=== PATIENT | female | born 1975 | race Two or more races ===

== ENCOUNTER → 2024-08-24 | Outpatient (CLI) | payer MEDICAID, SELFPAY ==
--- NOTE | 2024-08-24 | XR_ITS ---
Examination: Bilateral hands, 6 views. Technique: AP, Oblique, Lateral each hand total 6 views Date and time of exam: August 24 2024-0 1 hours INDICATIONS: Bilateral hand pain beginning 10 years ago worse the last 2 years Findings: Mild juxta-articular bone demineralization No fracture or dislocation involving either hand No erosive or other significant arthritic change involving either hand Mild bilateral osteoarthritis distal interphalangeal joints second through fifth digits IMPRESSION: No erosive or other significant arthritic change involving either hand
--- NOTE | 2024-08-24 | XR_ITS ---
Examination: Bilateral wrists 6 views TECHNIQUE: AP oblique lateral each wrist total 6 views Exam date and time: August 24, 2024 1206 hours INDICATIONS: Bilateral wrist pain 10 years, history carpal tunnel FINDINGS: Mild osteopenia No fracture or dislocation involving either wrist No erosive or other significant arthritic change involving either wrist IMPRESSION: No erosive or other significant arthritic change involving either wrist
== END | disposition home or self-care (01) ==
PROVIDERS: PCP Nurse Practitioner Primary Care
DX: M25.532 Pain in left wrist (principal); M79.642 Pain in left hand; M79.641 Pain in right hand; M25.531 Pain in right wrist
CPT/HCPCS: 73110; 73130

== ENCOUNTER → 2024-11-23 | Outpatient (CLI) | payer MEDICAID, SELFPAY ==
--- NOTE | 2024-11-23 10:30 | XR_ITS ---
Examination: Breast ultrasound complete, bilateral Date and time of exam: November 23, 2024 1126 hours INDICATIONS: Patient states bilateral breast lumps several months, family history breast cancer Technique: Real-time grayscale ultrasonographic imaging bilateral breasts, including all 4 quadrants as well as nipple retroareolar and axillary regions. Findings: Sonographic images right breast demonstrate multiple benign cysts 2:00 circumscribed nodule 5 x 4 mm Sonographic images left breast Multiple benign cysts No solid nodules IMPRESSION: BI-RADS Category 3: Probably benign findings One additional 6 month right breast sonogram follow-up is needed to document stability of 2:00 solid right breast nodule described above
== END | disposition home or self-care (01) ==
PROVIDERS: PCP Nurse Practitioner Primary Care; Referring Provider Nurse Practitioner Primary Care; Visit Provider Nurse Practitioner Primary Care
DX: R92.30 Dense breasts, unspecified (principal); N63.12 Unspecified lump in the right breast, upper inner quadrant
CPT/HCPCS: 76641

== ENCOUNTER 2025-06-15 11:07 | Outpatient (RCR) | payer MEDICAID, SELFPAY ==
--- NOTE | 2025-06-15 11:37 | PTNOTE_ITS ---
PT OP Initial Eval Patient Information Outpatient Physical Therapy Treatment Date: 06/15/25 Visit Reasons: lEFT HAND SURGERY Medical Diagnosis: Left Carpal Tunnel Syndrome Treatment Dx #1: Left Hand Weakness Treatment Dx #2: Left Hand Pain Start of Care: 06/15/25 Date of Onset: 04/17/25 Smoking Status Smoking Status: Never smoker Initial Assessment Subjective: Pt is a 49 y/o female s/p left carpal tunnel release 04/17/25. Pt still has pain (8/10) with weakness. Pt has limitation with gripping, lifting, chores, self care, cooking, cleaning, and performing recreational activities. Pt mentioned she also need right carpal tunnel release. 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 Pt will benefit from physical therapy to increase mobility, strength, and work on hand dexterity. 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 1) Increase left wrist AROM WNL in 6 wks to be able to perform chores 2) Increase left hand strength to 50 lbs in 6 wks to be able to perform gripping activities 3) Decrease wrist pain to 2/10 in 6 wks to be able to perform recreational activities 4) Increase left wrist MMTs grossly to 4/5 in 6 wks to be able to perform self care activities 5) Indep with HEP Treatment Plan 1) Manual Therapy 2) Therapeutic Activities 3) Therapeutic Exercises 4) Modalities (ice, heat) Frequency and Duration: 2 x wk for 6 wks Certification Dates: 06/15/25 to 09/15/25 Procedure Charges OP PT Eval Mod Complex 30 minutes: Yes
== END 2025-06-22 23:59 | disposition home or self-care (01) ==
LOC: CPTX 11:07
PROVIDERS: PCP Nurse Practitioner Gerontology; Referring Provider Nurse Practitioner Gerontology; Visit Provider Nurse Practitioner Gerontology
DX: M79.642 Pain in left hand (principal); R53.1 Weakness; Z98.890 Other specified postprocedural states
CPT/HCPCS: 97162

== ENCOUNTER → 2025-07-05 | Outpatient (CLI) | payer MEDICAID, SELFPAY ==
--- NOTE | 2025-07-05 13:30 | XR_ITS ---
Examination: Breast ultrasound complete, bilateral Date and time of exam: July 05, 2025 1355 hours INDICATIONS: Family history of breast cancer, bilateral breast pain and lumps in the breast 2 years Technique: Real-time grayscale ultrasonographic imaging bilateral breasts, including all 4 quadrants as well as nipple retroareolar and axillary regions. Findings: Sonographic images right breast Multiple benign cysts, the largest in the 9 o'clock position 8 x 7 mm No solid nodules Sonographic images left breast Multiple benign cysts, the largest in the 3:00 and 9:00 positions both 8 x 8 mm Smaller cysts No solid nodules IMPRESSION: BI-RADS Category 0: Incomplete: Need additional imaging evaluation Recommend diagnostic mammography follow-up
== END | disposition home or self-care (01) ==
PROVIDERS: PCP Nurse Practitioner Primary Care; Referring Provider Nurse Practitioner Primary Care; Visit Provider Nurse Practitioner Primary Care
DX: R92.8 Other abnormal and inconclusive findings on diagnostic imaging of breast (principal)
CPT/HCPCS: 76641

== ENCOUNTER 2025-07-17 14:30 | Outpatient (RCR) | payer MEDICAID, SELFPAY ==
--- NOTE | 2025-06-26 13:52 | PT.ODAYNRPT ---
PT Outpatient Daily Note OP Daily Note Outpatient Physical Therapy Treatment Date: 06/26/25 Visit Reasons: left hand pain Subjective: Pt has been massaging the hand around the scar site. Pt's hand feels okay. Objective: Please see flow chart for list of ther ex performed Assessment: patient was initially sensitive to the STM, however, tolerate after a few mins. Pt performed all yellow resistance hand exercises with good form Plan: Continue with PT Length of Time (minutes) of Treatment: 30 Minutes Procedure Charges Therapeutic Exercise 30 minutes: Yes
--- NOTE | 2025-06-28 14:01 | PT.ODAYNRPT ---
PT Outpatient Daily Note OP Daily Note Outpatient Physical Therapy Treatment Date: 06/28/25 Visit Reasons: left hand pain Subjective: Pt's hand feels better. Pt continues to work on scar at home with massage. Objective: Please see flow chart for list of ther ex performed Assessment: tolerate exercises with minimal pain, however, demonstrate hand fatigue post PT session Plan: Continue with PT Length of Time (minutes) of Treatment: 30 Minutes Procedure Charges Therapeutic Exercise 30 minutes: Yes
--- NOTE | 2025-07-05 09:03 | PT.ODAYNRPT ---
PT Outpatient Daily Note OP Daily Note Outpatient Physical Therapy Treatment Date: 07/05/25 Visit Reasons: left hand pain Subjective: Pt reports L hand is doing better still has some sensitivity where scar is. Objective: Please see flow sheet for ther ex list. Assessment: Performed STMa nd scar mobilization, pt tolerated well. Plan: Continue with pOC. Length of Time (minutes) of Treatment: 30 Minutes Procedure Charges Therapeutic Exercise 30 minutes: Yes
--- NOTE | 2025-07-13 14:42 | PT.ODAYNRPT ---
PT Outpatient Daily Note OP Daily Note Outpatient Physical Therapy Treatment Date: 07/12/25 Visit Reasons: left hand pain Subjective: Pt's hand is better. Pt mentioned that her scar is less painful STM is helping. Objective: Please see flow chart for list of ther ex performed Assessment: progressing with hand resistance exercises able to complete complete with better form today Plan: Continue with PT Length of Time (minutes) of Treatment: 30 Minutes Procedure Charges Therapeutic Exercise 30 minutes: Yes
--- NOTE | 2025-07-17 15:18 | PT.ODAYNRPT ---
PT Outpatient Daily Note OP Daily Note Outpatient Physical Therapy Treatment Date: 07/17/25 Visit Reasons: left hand pain Subjective: Pt reports L hand is doing better but still has occasional pain. Objective: Please see flow sheet for ther ex list. Assessment: Performed scar mobs, decrease TTP indicating progress. Plan: Continue with pOC. Length of Time (minutes) of Treatment: 30 Minutes Procedure Charges Therapeutic Exercise 30 minutes: Yes
== END 2025-07-22 23:59 | disposition home or self-care (01) ==
LOC: CPTX 14:30
PROVIDERS: PCP Nurse Practitioner Gerontology; Referring Provider Nurse Practitioner Gerontology; Visit Provider Nurse Practitioner Gerontology
DX: M79.642 Pain in left hand (principal); R53.1 Weakness; Z98.890 Other specified postprocedural states
CPT/HCPCS: 97110

== ENCOUNTER → 2025-08-01 | Outpatient (CLI) | payer MEDICAID, SELFPAY ==
--- NOTE | 2025-08-01 14:15 | XR_ITS ---
Examination: Screening digital mammography, bilateral Computer aided detection 3-D breast Tomosynthesis, bilateral Date and time of exam: 08/01/2025, 2:25 p.m. Comparisons: 12/08/2027 Indications: Screening, bilateral palpable abnormalities Technique: Nonmagnified MLO, CC views of the breasts to been obtained, reconstructed from 3-D Tomosynthesis images. R2 computer aided detection program utilized for evaluation of suspicious masses and/or abnormal calcifications. 3-D Tomosynthesis images obtained. Technologist: Findings: The breasts are extremely dense, which lowers the sensitivity of mammography. No evidence of abnormal masses or suspicious calcifications. Impression: No focal abnormality seen on screening mammogram. Patient history sheet reports new bilateral breast lumps. Bilateral diagnostic mammograms and ultrasound recommended for complete evaluation. BI-RADS category 0: Incomplete assassment; need additional imaging evaluation
== END | disposition home or self-care (01) ==
PROVIDERS: PCP Nurse Practitioner Primary Care; Referring Provider Nurse Practitioner Primary Care; Visit Provider Nurse Practitioner Primary Care
DX: Z12.31 Encounter for screening mammogram for malignant neoplasm of breast (principal); R92.8 Other abnormal and inconclusive findings on diagnostic imaging of breast
CPT/HCPCS: 77063; 77067

== ENCOUNTER 2025-08-14 15:00 | Outpatient (RCR) | payer MEDICAID, SELFPAY ==
--- NOTE | 2025-07-24 15:00 | PT.ODAYNRPT ---
PT Outpatient Daily Note OP Daily Note Outpatient Physical Therapy Treatment Date: 07/24/25 Visit Reasons: left hand pain Subjective: Pt reports L hand is progressing. Objective: Please see flow sheet for ther ex list. Assessment: Progressing functional hand strengthening, pt tolerated well. Plan: Continue with pOC. Length of Time (minutes) of Treatment: 30 Minutes Procedure Charges Therapeutic Exercise 30 minutes: Yes
--- NOTE | 2025-07-26 15:49 | PTNOTE_ITS ---
PT Outpatient Daily Note OP Daily Note Outpatient Physical Therapy Treatment Date: 07/26/25 Visit Reasons: left hand pain Subjective: Pt still notice pinky numbness but hand feels better. Pt also mentioned her right hand is bad and will require surgery at some point. Pt decline the surgery due to fear of pain. 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 Plan: Continue with PT Length of Time (minutes) of Treatment: 30 Minutes Procedure Charges Therapeutic Exercise 30 minutes: Yes
--- NOTE | 2025-08-01 13:56 | PT.ODAYNRPT ---
PT Outpatient Daily Note OP Daily Note Outpatient Physical Therapy Treatment Date: 08/01/25 Visit Reasons: left hand pain Subjective: Pt's hand feels okay. Pt still notice some numbness in the thumb and index finger. Objective: Please see flow chart for list of ther ex performed Assessment: progressing with exercises reps and resistance with better form noted today Plan: Continue with PT Length of Time (minutes) of Treatment: 30 Minutes Procedure Charges Therapeutic Exercise 30 minutes: Yes
--- NOTE | 2025-08-03 14:47 | PT.ODAYNRPT ---
PT Outpatient Daily Note OP Daily Note Outpatient Physical Therapy Treatment Date: 08/03/25 Visit Reasons: left hand pain Subjective: Pt c/o pain in the L hand. Objective: Please see flow sheet for ther ex list. Assessment: Progressing hand gripping and functional strength as tolerated. Plan: Continue with poC. Length of Time (minutes) of Treatment: 30 Minutes Procedure Charges Therapeutic Exercise 30 minutes: Yes
--- NOTE | 2025-08-08 16:02 | PT.ODAYNRPT ---
PT Outpatient Daily Note OP Daily Note Outpatient Physical Therapy Treatment Date: 08/08/25 Visit Reasons: left hand pain Subjective: Pt reports L hand is doing ok, still continues to have pain and sensitivity on L thumb. Objective: Please see flow sheet for ther ex list. Assessment: Performed STM and scars mobs, pt tolerated well. Plan: Continue with poC. Length of Time (minutes) of Treatment: 30 Minutes Procedure Charges Therapeutic Exercise 30 minutes: Yes
--- NOTE | 2025-08-14 15:46 | PT.ODAYNRPT ---
PT Outpatient Daily Note OP Daily Note Outpatient Physical Therapy Treatment Date: 08/14/25 Visit Reasons: left hand pain Subjective: Pt reports her L hand is sore today and notices her thumb feels more sore. Objective: Please see flow sheet for ther ex list. Assessment: Pt TTP today around scar during STM today. Plan: Please see flow sheet for ther ex list. Length of Time (minutes) of Treatment: 30 Minutes Procedure Charges Therapeutic Exercise 30 minutes: Yes
== END 2025-08-22 23:59 | disposition home or self-care (01) ==
LOC: CPTX 15:00
PROVIDERS: PCP Nurse Practitioner Gerontology; Referring Provider Nurse Practitioner Gerontology; Visit Provider Nurse Practitioner Gerontology
DX: M79.642 Pain in left hand (principal); R53.1 Weakness; Z98.890 Other specified postprocedural states
CPT/HCPCS: 97110